=== PATIENT | female | born 1940 | race Caucasian/White ===

== ENCOUNTER 2021-08-28 12:08 | Inpatient (IN) ==
[2021-08-28] MEDS ORDERED: SODIUM CHLORIDE 0.9% 500 ML IV STA (12:36)
[2021-08-28] MEDS ORDERED: DIPH/TET/ACEL PERT BOOSTER VACCINE 0.5 ML VIAL IM ONE (12:47)
[2021-08-28 13:18] LABS: Basophils % 0.6 % (0.0-0.8); Eosinophils # 0.1 10*3/uL (0.0-0.87); Eosinophils % 2.4 % (0.00-10.9); Hemoglobin 12.7 GM/DL (12.0-16.0); Immature Granulocytes % 0.4 %; Immature Granulocytes Absolute 0.02 #; Lymphocytes # 1.1 10*3/uL (1.4-4.0); Lymphocytes % 21.8 % (21.3-54.2); Mean Corpuscular HGB Conc 32.6 GM/DL (32-36); Mean Corpuscular Volume 93.1 FL (87-102); Mean Platelet Volume 9.4 FL (9.6-12.0); Monocytes # 0.5 10*3/uL (0.11-0.8); Monocytes % 9.8 % (1.7-12.7); Platelet Count 295 T/CUMM (130-400); Red Blood Count 4.19 MC/CUMM (3.8-5.5); Red Cell Distribution Width 13.2 % (9.3-17.3)
[2021-08-28 13:29] LABS: PT Patient Result 10.8 SECS (10.5-12.0)
[2021-08-28 13:43] LABS: Alanine Aminotransferase 24 U/L (13-56); Albumin 3.2 G/DL (3.4-5.0); Alkaline Phosphatase 110 U/L (45-117); Aspartate Amino Transferase 37 U/L (0-37); Bilirubin,Total < 0.39 MG/DL (0.20-1.00); Blood Urea Nitrogen 25 MG/DL (7-18); Calcium 9.4 MG/DL (8.5-10.1); Carbon Dioxide 24 MMOL/L (21-32); Chloride 113 MMOL/L (98-107); Glucose 105 MG/DL (74-106); Osmolality,Calculated 284.3 MOS/KG (273-304); Potassium 3.8 MMOL/L (3.5-5.1); Sodium 141 MMOL/L (136-145); Total Protein 7.2 G/DL (6.4-8.2)
[2021-08-28] MEDS ORDERED: GLUCAGON 1 MG VIAL IM PRN (14:39)
[2021-08-28] MEDS ORDERED: DOCUSATE SODIUM 100 MG CAPSULE PO PRN (14:39)
[2021-08-28] MEDS ORDERED: ONDANSETRON 4 MG/2 ML VIAL IV PRN (14:39)
[2021-08-28] MEDS ORDERED: hydrALAZINE 20 MG/1 ML VIAL IV PRN (14:39)
[2021-08-28 14:41] LABS: Bacteria,Urine Moderate /HPF (Few); Mucus,Urine Occasional /LPF (Occasional); Squamous Epithelial Cell,Urine Occasional /HPF (0-10)
[2021-08-28 14:43] LABS: Bilirubin,Urine Negative (Negative); Blood, Urine Negative (Negative); Glucose,Urine (UA) Negative (Negative); Ketones,Urine Negative (Negative); Nitrite,Urine Positive (Negative); Protein,Urine Negative (Negative); Urine Appearance Clear (Clear); Urine Color Yellow (Yellow); Urine Specific Gravity > 1.030 (1.001-1.035); Urine Urobilinogen 0.2 eU/dL (<2.0); Urine pH 5.5 (4.5-8.0)
[2021-08-28 14:45] LABS: Barbiturates Screen,Urine Negative (Negative); Benzodiazepines Screen,Urine Negative (Negative); Cannabinoid Screen,Urine Negative (Negative); Opiate Screen,Urine Negative (Negative); Phencyclidine Screen,Urine Negative (Negative)
[2021-08-28] MEDS ORDERED: DEXTROSE 10% 250 ML BAG IV PRN (14:45)
[2021-08-28] MEDS: SODIUM CHLORIDE 0.9% 1,000 ML IV SCH (16:38)
[2021-08-28] MEDS: NITROFURANTOIN MACRO/MONO 100 MG CAPSULE PO SCH (16:42)
[2021-08-28] MEDS: INSULIN LISPRO 100 UNIT/ML SUBCUT SCH ×2 (23:44→23:53)
[2021-08-29] MEDS: SODIUM CHLORIDE 0.9% 1,000 ML IV SCH ×2 (00:50→16:05)
[2021-08-29] MEDS: NITROFURANTOIN MACRO/MONO 100 MG CAPSULE PO SCH (04:19)
[2021-08-29 05:16] LABS: Basophils % 0.7 % (0.0-0.8); Eosinophils # 0.1 10*3/uL (0.0-0.87); Eosinophils % 3.2 % (0.00-10.9); Hematocrit 34.7 VOL% (35.7-47.0); Hemoglobin 11.3 GM/DL (12.0-16.0); Immature Granulocytes % 0.5 %; Immature Granulocytes Absolute 0.02 #; Lymphocytes # 1.4 10*3/uL (1.4-4.0); Mean Corpuscular HGB Conc 32.6 GM/DL (32-36); Mean Corpuscular Volume 91.8 FL (87-102); Mean Platelet Volume 9.4 FL (9.6-12.0); Monocytes # 0.5 10*3/uL (0.11-0.8); Monocytes % 10.7 % (1.7-12.7); Neutrophils % 52.9 % (38.7-73.9); Platelet Count 279 T/CUMM (130-400); Red Blood Count 3.78 MC/CUMM (3.8-5.5); White Blood Count 4.4 T/CUMM (4-12)
[2021-08-29 05:47] LABS: Calcium 8.9 MG/DL (8.5-10.1); Osmolality,Calculated 284.1 MOS/KG (273-304); Potassium 3.2 MMOL/L (3.5-5.1); Risk Ratio 3.73; Thyroid Stimulating Hormone 3.11 uIU/ml (0.358-3.74); VLDL Cholesterol 43.4 MG/DL
[2021-08-29] MEDS ORDERED: MECLIZINE 25 MG TABLET PO PRN (07:38)
[2021-08-29] MEDS: INSULIN LISPRO 100 UNIT/ML SUBCUT SCH ×4 (07:39→20:41)
[2021-08-29] MEDS: PANTOPRAZOLE 40 MG TABLET PO SCH (09:35)
[2021-08-29] MEDS: POTASSIUM CHLORIDE 20 MEQ TABLET PO PRN ×4 (09:35→16:02)
[2021-08-29] MEDS: MONTELUKAST 10 MG TABLET PO SCH ×2 (09:36→20:32)
[2021-08-29] MEDS: MEMANTINE 5 MG TABLET PO SCH (09:36)
[2021-08-29] MEDS: MESALAMINE 1.2 GM PO SCH ×2 (09:38→20:41)
[2021-08-29] MEDS: DICYCLOMINE 10 MG CAPSULE PO SCH ×3 (11:48→20:33)
[2021-08-29] MEDS: ERTAPENEM 1,000 MG in SODIUM CHLORIDE 0.9% 100 ML IV SCH (13:26)
[2021-08-29] MEDS: OMEGA 3 ACID ETHYL ESTERS 1 GM CAPSULE PO SCH (20:34)
[2021-08-29] MEDS: NICOTINE 14 MG/24 HR PATCH TRANSDERM PRN (20:35)
[2021-08-29] MEDS: MEMANTINE 10 MG TABLET PO SCH (20:37)
[2021-08-29] MEDS ORDERED: diphenhydrAMINE CAP 25 MG CAPSULE PO ONE (23:54)
[2021-08-30 05:36] LABS: Basophils % 0.6 % (0.0-0.8); Eosinophils # 0.2 10*3/uL (0.0-0.87); Hematocrit 35.5 VOL% (35.7-47.0); Hemoglobin 11.7 GM/DL (12.0-16.0); Immature Granulocytes % 0.8 %; Immature Granulocytes Absolute 0.04 #; Lymphocytes # 1.7 10*3/uL (1.4-4.0); Lymphocytes % 33.2 % (21.3-54.2); Mean Corpuscular Volume 90.1 FL (87-102); Mean Platelet Volume 9.2 FL (9.6-12.0); Monocytes # 0.6 10*3/uL (0.11-0.8); Monocytes % 11.3 % (1.7-12.7); Neutrophils % 50.1 % (38.7-73.9); Platelet Count 293 T/CUMM (130-400); Red Blood Count 3.94 MC/CUMM (3.8-5.5); Red Cell Distribution Width 12.7 % (9.3-17.3); White Blood Count 5.1 T/CUMM (4-12)
[2021-08-30 05:52] LABS: Osmolality,Calculated 281.1 MOS/KG (273-304); Potassium 3.4 MMOL/L (3.5-5.1)
[2021-08-30] MEDS: SODIUM CHLORIDE 0.9% 1,000 ML IV SCH (06:22)
[2021-08-30] MEDS ORDERED: POTASSIUM CHLORIDE 20 MEQ TABLET PO ONE (07:55)
[2021-08-30] MEDS: MEMANTINE 5 MG TABLET PO SCH (08:43)
[2021-08-30] MEDS: DICYCLOMINE 10 MG CAPSULE PO SCH ×4 (08:43→21:23)
[2021-08-30] MEDS: amLODIPine 5 MG TABLET PO SCH (08:44)
[2021-08-30] MEDS: PANTOPRAZOLE 40 MG TABLET PO SCH (08:44)
[2021-08-30] MEDS: MONTELUKAST 10 MG TABLET PO SCH ×2 (08:44→21:19)
[2021-08-30] MEDS: POTASSIUM CHLORIDE 20 MEQ TABLET PO SCH ×2 (08:45→21:20)
[2021-08-30] MEDS: INSULIN LISPRO 100 UNIT/ML SUBCUT SCH ×4 (08:58→23:57)
[2021-08-30] MEDS: MESALAMINE 1.2 GM PO SCH ×2 (11:36→23:57)
[2021-08-30 13:29] LABS: Iron 50 UG/DL (50-170); Iron Binding Capacity 312 UG/DL (250-450)
[2021-08-30 13:36] LABS: Folate 16.29 NG/ML (5.38-24.0)
[2021-08-30] MEDS: ERTAPENEM 1,000 MG in SODIUM CHLORIDE 0.9% 100 ML IV SCH (13:52)
[2021-08-30] MEDS: RIVAROXABAN 10 MG TABLET PO SCH (16:54)
[2021-08-30] MEDS: AMITRIPTYLINE 25 MG TABLET PO SCH (21:20)
[2021-08-30] MEDS: GABAPENTIN 100 MG CAPSULE PO SCH (21:20)
[2021-08-30] MEDS: MEMANTINE 10 MG TABLET PO SCH (21:20)
[2021-08-30] MEDS: OMEGA 3 ACID ETHYL ESTERS 1 GM CAPSULE PO SCH (21:20)
[2021-08-30] MEDS: NICOTINE 14 MG/24 HR PATCH TRANSDERM PRN (21:23)
[2021-08-31] MEDS: SODIUM CHLORIDE 0.9% 1,000 ML IV SCH ×2 (02:36→10:04)
[2021-08-31 06:52] LABS: Basophils # 0.1 10*3/uL (0.0-0.2); Basophils % 0.9 % (0.0-0.8); Eosinophils # 0.2 10*3/uL (0.0-0.87); Eosinophils % 4.5 % (0.00-10.9); Hemoglobin 11.8 GM/DL (12.0-16.0); Immature Granulocytes % 0.6 %; Immature Granulocytes Absolute 0.03 #; Lymphocytes # 1.6 10*3/uL (1.4-4.0); Lymphocytes % 29.3 % (21.3-54.2); Mean Corpuscular HGB Conc 33.7 GM/DL (32-36); Mean Corpuscular Volume 89.3 FL (87-102); Mean Platelet Volume 9.1 FL (9.6-12.0); Monocytes # 0.6 10*3/uL (0.11-0.8); Neutrophils % 53.7 % (38.7-73.9); Platelet Count 294 T/CUMM (130-400); Red Blood Count 3.92 MC/CUMM (3.8-5.5); Red Cell Distribution Width 13.1 % (9.3-17.3); White Blood Count 5.4 T/CUMM (4-12)
[2021-08-31 07:13] LABS: Alanine Aminotransferase 21 U/L (13-56); Albumin 2.7 G/DL (3.4-5.0); Alkaline Phosphatase 90 U/L (45-117); Aspartate Amino Transferase 28 U/L (0-37); Bilirubin,Total < 0.39 MG/DL (0.20-1.00); Blood Urea Nitrogen 10 MG/DL (7-18); Calcium 8.9 MG/DL (8.5-10.1); Carbon Dioxide 25 MMOL/L (21-32); Chloride 114 MMOL/L (98-107); Glucose 116 MG/DL (74-106); Osmolality,Calculated 285.8 MOS/KG (273-304); Potassium 3.8 MMOL/L (3.5-5.1); Sodium 144 MMOL/L (136-145); Total Protein 6.6 G/DL (6.4-8.2)
[2021-08-31] MEDS: PANTOPRAZOLE 40 MG TABLET PO SCH (09:55)
[2021-08-31] MEDS: MONTELUKAST 10 MG TABLET PO SCH ×2 (09:55→21:05)
[2021-08-31] MEDS: FERROUS SULFATE 325 MG TABLET PO SCH (09:55)
[2021-08-31] MEDS: DICYCLOMINE 10 MG CAPSULE PO SCH ×4 (09:57→21:04)
[2021-08-31] MEDS: amLODIPine 5 MG TABLET PO SCH (09:57)
[2021-08-31] MEDS: POTASSIUM CHLORIDE 20 MEQ TABLET PO SCH ×2 (09:57→21:05)
[2021-08-31] MEDS: INSULIN LISPRO 100 UNIT/ML SUBCUT SCH ×4 (09:59→21:08)
[2021-08-31] MEDS: MESALAMINE 1.2 GM PO SCH ×2 (10:05→21:08)
[2021-08-31] MEDS: MEMANTINE 5 MG TABLET PO SCH (10:05)
[2021-08-31] MEDS: GABAPENTIN 100 MG CAPSULE PO SCH ×2 (10:05→21:04)
[2021-08-31] MEDS: ERTAPENEM 1,000 MG in SODIUM CHLORIDE 0.9% 100 ML IV SCH (14:47)
[2021-08-31] MEDS: RIVAROXABAN 10 MG TABLET PO SCH (16:46)
[2021-08-31] MEDS: AMITRIPTYLINE 25 MG TABLET PO SCH (21:04)
[2021-08-31] MEDS: OMEGA 3 ACID ETHYL ESTERS 1 GM CAPSULE PO SCH (21:04)
[2021-08-31] MEDS: MEMANTINE 10 MG TABLET PO SCH (21:05)
[2021-08-31] MEDS: NICOTINE 14 MG/24 HR PATCH TRANSDERM PRN (21:06)
[2021-09-01 06:13] LABS: Basophils # 0.1 10*3/uL (0.0-0.2); Basophils % 1.1 % (0.0-0.8); Eosinophils # 0.2 10*3/uL (0.0-0.87); Eosinophils % 4.6 % (0.00-10.9); Hematocrit 33.6 VOL% (35.7-47.0); Hemoglobin 11.1 GM/DL (12.0-16.0); Immature Granulocytes % 1.1 %; Immature Granulocytes Absolute 0.06 #; Lymphocytes % 38.7 % (21.3-54.2); Mean Corpuscular Volume 90.3 FL (87-102); Mean Platelet Volume 9.7 FL (9.6-12.0); Monocytes # 0.5 10*3/uL (0.11-0.8); Monocytes % 9.5 % (1.7-12.7); Platelet Count 305 T/CUMM (130-400); Red Blood Count 3.72 MC/CUMM (3.8-5.5); Red Cell Distribution Width 13.1 % (9.3-17.3); White Blood Count 5.3 T/CUMM (4-12)
[2021-09-01 07:02] LABS: Calcium 9.2 MG/DL (8.5-10.1); Potassium 3.9 MMOL/L (3.5-5.1)
[2021-09-01] MEDS: amLODIPine 5 MG TABLET PO SCH (08:28)
[2021-09-01] MEDS: FERROUS SULFATE 325 MG TABLET PO SCH (08:28)
[2021-09-01] MEDS: DICYCLOMINE 10 MG CAPSULE PO SCH ×4 (08:28→22:03)
[2021-09-01] MEDS: POTASSIUM CHLORIDE 20 MEQ TABLET PO SCH ×2 (08:28→22:02)
[2021-09-01] MEDS: MEMANTINE 5 MG TABLET PO SCH (08:28)
[2021-09-01] MEDS: MONTELUKAST 10 MG TABLET PO SCH ×2 (08:28→22:02)
[2021-09-01] MEDS: PANTOPRAZOLE 40 MG TABLET PO SCH (08:28)
[2021-09-01] MEDS: GABAPENTIN 100 MG CAPSULE PO SCH ×2 (08:30→22:03)
[2021-09-01] MEDS: MESALAMINE 1.2 GM PO SCH ×2 (09:49→22:07)
[2021-09-01] MEDS: INSULIN LISPRO 100 UNIT/ML SUBCUT SCH ×4 (09:49→22:05)
[2021-09-01] MEDS: ERTAPENEM 1,000 MG in SODIUM CHLORIDE 0.9% 100 ML IV SCH (15:02)
[2021-09-01] MEDS: RIVAROXABAN 10 MG TABLET PO SCH (17:24)
[2021-09-01] MEDS: AMITRIPTYLINE 25 MG TABLET PO SCH (22:02)
[2021-09-01] MEDS: OMEGA 3 ACID ETHYL ESTERS 1 GM CAPSULE PO SCH (22:02)
[2021-09-01] MEDS: MEMANTINE 10 MG TABLET PO SCH (22:02)
[2021-09-02] MEDS: DICYCLOMINE 10 MG CAPSULE PO SCH ×4 (07:05→20:44)
[2021-09-02] MEDS: MEMANTINE 5 MG TABLET PO SCH (08:26)
[2021-09-02] MEDS: POTASSIUM CHLORIDE 20 MEQ TABLET PO SCH ×2 (08:26→20:44)
[2021-09-02] MEDS: GABAPENTIN 100 MG CAPSULE PO SCH ×2 (08:26→20:44)
[2021-09-02] MEDS: amLODIPine 5 MG TABLET PO SCH (08:26)
[2021-09-02] MEDS: FERROUS SULFATE 325 MG TABLET PO SCH (08:26)
[2021-09-02] MEDS: PANTOPRAZOLE 40 MG TABLET PO SCH (08:26)
[2021-09-02] MEDS: MONTELUKAST 10 MG TABLET PO SCH ×2 (08:26→20:43)
[2021-09-02] MEDS: INSULIN LISPRO 100 UNIT/ML SUBCUT SCH ×4 (08:38→22:42)
[2021-09-02] MEDS: MESALAMINE 1.2 GM PO SCH ×2 (08:39→22:43)
[2021-09-02] MEDS: ERTAPENEM 1,000 MG in SODIUM CHLORIDE 0.9% 100 ML IV SCH (15:05)
[2021-09-02] MEDS: NICOTINE 14 MG/24 HR PATCH TRANSDERM PRN (15:34)
[2021-09-02] MEDS: RIVAROXABAN 10 MG TABLET PO SCH (17:54)
[2021-09-02] MEDS: OMEGA 3 ACID ETHYL ESTERS 1 GM CAPSULE PO SCH (20:43)
[2021-09-02] MEDS: AMITRIPTYLINE 25 MG TABLET PO SCH (20:44)
[2021-09-02] MEDS: MEMANTINE 10 MG TABLET PO SCH (20:44)
[2021-09-03] MEDS: DICYCLOMINE 10 MG CAPSULE PO SCH ×2 (06:37→12:14)
[2021-09-03] MEDS: MESALAMINE 1.2 GM PO SCH (09:55)
[2021-09-03] MEDS: INSULIN LISPRO 100 UNIT/ML SUBCUT SCH ×2 (09:55→11:50)
[2021-09-03] MEDS: POTASSIUM CHLORIDE 20 MEQ TABLET PO SCH (10:11)
[2021-09-03] MEDS: GABAPENTIN 100 MG CAPSULE PO SCH (10:11)
[2021-09-03] MEDS: MEMANTINE 5 MG TABLET PO SCH (10:11)
[2021-09-03] MEDS: PANTOPRAZOLE 40 MG TABLET PO SCH (10:11)
[2021-09-03] MEDS: amLODIPine 5 MG TABLET PO SCH (10:12)
[2021-09-03] MEDS: MONTELUKAST 10 MG TABLET PO SCH (10:12)
[2021-09-03] MEDS: FERROUS SULFATE 325 MG TABLET PO SCH (10:13)
[2021-09-03 12:05] VITALS: BP 146/67
== END 2021-09-03 13:18 | disposition swing bed (61) | DRG 690 ==
LOC: N.EDINP 12:08 → N.ED 12:08 → SUATTDRO 14:39 → N.EDINP 08-29 00:18 → N.5E 08-29 00:31 → SUATTDRO 08-29 12:49
PROVIDERS: ADMIT Internal Medicine; ATTEND Internal Medicine

== ENCOUNTER 2022-03-10 11:19 | Observation (INO) ==
[2022-03-10] MEDS ORDERED: SODIUM CHLORIDE 0.9% 1,000 ML IV STA (11:28)
[2022-03-10 11:57] LABS: Basophils # 0.1 10*3/uL (0.0-0.2); Eosinophils # 0.1 10*3/uL (0.0-0.87); Eosinophils % 1.5 % (0.00-10.9); Hematocrit 33.4 VOL% (35.7-47.0); Hemoglobin 10.9 GM/DL (12.0-16.0); Immature Granulocytes % 0.3 %; Immature Granulocytes Absolute 0.02 #; Lymphocytes # 1.8 10*3/uL (1.4-4.0); Lymphocytes % 29.7 % (21.3-54.2); Mean Corpuscular HGB Conc 32.6 GM/DL (32-36); Mean Corpuscular Volume 94.1 FL (87-102); Mean Platelet Volume 9.2 FL (9.6-12.0); Monocytes # 0.6 10*3/uL (0.11-0.8); Monocytes % 10.3 % (1.7-12.7); Neutrophils % 57.2 % (38.7-73.9); Platelet Count 253 T/CUMM (130-400); Red Blood Count 3.55 MC/CUMM (3.8-5.5); White Blood Count 6.1 T/CUMM (4-12)
[2022-03-10 12:07] LABS: INR 0.9; PT Patient Result 10.5 SECS (10.1-12.1)
[2022-03-10 12:19] LABS: Alanine Aminotransferase 17 U/L (13-56); Albumin 2.8 G/DL (3.4-5.0); Alkaline Phosphatase 110 U/L (45-117); Aspartate Amino Transferase 11 U/L (0-37); Bilirubin,Total < 0.39 MG/DL (0.20-1.00); Blood Urea Nitrogen 19 MG/DL (7-18); Calcium 8.3 MG/DL (8.5-10.1); Carbon Dioxide 24 MMOL/L (21-32); Chloride 113 MMOL/L (98-107); Glucose 156 MG/DL (74-106); Osmolality,Calculated 287.1 MOS/KG (273-304); Sodium 142 MMOL/L (136-145); Total Protein 6.1 G/DL (6.4-8.2)
[2022-03-10] MEDS ORDERED: ENOXAPARIN 60 MG/0.6 ML SYRINGE SUBCUT STA (12:26)
[2022-03-10 12:50] LABS: Bilirubin,Urine Negative (Negative); Blood, Urine Large mg/dL (Negative); Glucose,Urine (UA) Negative (Negative); Ketones,Urine Negative (Negative); Mucus,Urine Occasional /LPF (Occasional); Nitrite,Urine Negative (Negative); Protein,Urine 100 mg/dL (Negative); RBC,Urine 26 /HPF (0-4); Squamous Epithelial Cell,Urine Occasional /HPF (0-10); Urine Appearance Cloudy (Clear); Urine Color Yellow (Yellow); Urine Specific Gravity 1.015 (1.001-1.035); Urine Urobilinogen 0.2 eU/dL (<2.0)
[2022-03-10] MEDS ORDERED: cefTRIAXone 1,000 MG in SODIUM CHLORIDE 0.9% 100 ML IV STA (12:53)
[2022-03-10] MEDS ORDERED: ONDANSETRON 4 MG/2 ML VIAL IV PRN (15:12)
[2022-03-10] MEDS: SODIUM CHLORIDE 0.9% 1,000 ML IV SCH (15:58)
[2022-03-10] MEDS: ASPIRIN CHEW 81 MG TABLET PO SCH (15:58)
[2022-03-10] MEDS: DICYCLOMINE 10 MG CAPSULE PO SCH ×2 (17:54→22:03)
[2022-03-10] MEDS ORDERED: ATORVASTATIN 40 MG TABLET PO SCH (21:00)
[2022-03-10] MEDS ORDERED: AMITRIPTYLINE 75 MG TABLET PO SCH (21:00)
[2022-03-10] MEDS: NON-FORMULARY MEDICATION (Mesalamine 1.2 gram Tablet,Delayed Release (Dr/Ec)) PO SCH (22:04)
[2022-03-10] MEDS ORDERED: diphenhydrAMINE CAP 50 MG CAPSULE PO SCH (23:00)
[2022-03-10] MEDS ORDERED: MELATONIN 3 MG TABLET PO SCH (23:00)
[2022-03-11 05:33] LABS: Basophils % 0.6 % (0.0-0.8); Eosinophils # 0.1 10*3/uL (0.0-0.87); Eosinophils % 2.9 % (0.00-10.9); Hematocrit 33.8 VOL% (35.7-47.0); Immature Granulocytes % 0.2 %; Immature Granulocytes Absolute 0.01 #; Lymphocytes # 1.6 10*3/uL (1.4-4.0); Lymphocytes % 33.5 % (21.3-54.2); Mean Corpuscular HGB Conc 32.5 GM/DL (32-36); Mean Corpuscular Volume 91.6 FL (87-102); Mean Platelet Volume 9.7 FL (9.6-12.0); Monocytes # 0.5 10*3/uL (0.11-0.8); Monocytes % 9.8 % (1.7-12.7); Platelet Count 270 T/CUMM (130-400); Red Blood Count 3.69 MC/CUMM (3.8-5.5); Red Cell Distribution Width 13.7 % (9.3-17.3); White Blood Count 4.9 T/CUMM (4-12)
[2022-03-11 05:57] LABS: Calcium 8.7 MG/DL (8.5-10.1); Osmolality,Calculated 287.7 MOS/KG (273-304); Potassium 3.6 MMOL/L (3.5-5.1); Risk Ratio 4.88
[2022-03-11] MEDS: SODIUM CHLORIDE 0.9% 1,000 ML IV SCH (07:35)
[2022-03-11] MEDS: DICYCLOMINE 10 MG CAPSULE PO SCH ×2 (08:20→12:09)
[2022-03-11] MEDS: ASPIRIN CHEW 81 MG TABLET PO SCH (08:21)
[2022-03-11] MEDS: NON-FORMULARY MEDICATION (Mesalamine 1.2 gram Tablet,Delayed Release (Dr/Ec)) PO SCH (08:21)
[2022-03-11] MEDS ORDERED: PANTOPRAZOLE 40 MG TABLET PO SCH (09:00)
[2022-03-11] MEDS ORDERED: MULTIVITAMIN (OCUVITE) TABLET PO SCH (09:00)
[2022-03-11] MEDS ORDERED: ENOXAPARIN 40 MG/0.4 ML SYRINGE SUBCUT SCH (09:00)
[2022-03-11] MEDS ORDERED: MONTELUKAST 10 MG TABLET PO SCH (09:00)
[2022-03-11] MEDS ORDERED: cefTRIAXone 1,000 MG in SODIUM CHLORIDE 0.9% 100 ML IV SCH (13:00)
[2022-03-11 13:04] VITALS: BP 167/97
== END 2022-03-11 15:02 | disposition home or self-care (01) ==
LOC: N.EDINP 11:19 → N.ED 11:19 → SUATTDRO 15:12 → N.EDINP 17:15 → N.2W 17:51
PROVIDERS: ADMIT Emergency Medicine; ATTEND Family Medicine